=== PATIENT | male | born 1985 | race Caucasian/White ===

== ENCOUNTER → 2023-09-19 10:29 | Outpatient (CLI) | payer OTHER, SELFPAY ==
--- NOTE | ~2023-09-19 | CT_ITS ---
EXAMINATION: CT diagnostic chest wo con DATE: 09/19/2023 10:42 INDICATION: Right upper lobe groundglass nodule reported on prior CT examination outside facility. TECHNIQUE: Computed tomography (CT) of the chest was performed without intravenous contrast. Automate d exposure control and iterative reconstruction technique were employed. Exam dose: 150.18 mGy-cm to beto exam DLP. COMPARISON: None FINDINGS: Right upper lobe, left upper lobe and left lower lobe calcified pulmonary granulomas. Left hilar calcified lymph nodes. No pulmonary infiltrate or consolidation or pulmonary mass lesion is evident. No hilar or mediastinal mass lesion or lymphadenopathy. Normal morphology of the adrenal glands. Small sliding hiatal hernia. Included skeletal structures are unremarkable. IMPRESSION: Old pulmonary granulomatous disease; no suspicious pulmonary nodules Reviewed, dictated and finalized at [facility]. Reviewed, dictated and finalized at [facility]. [employer] IMPRESSION: Old pulmonary granulomatous disease; no suspicious pulmonary nodul es
== END ==
DX: R91.8 Other nonspecific abnormal finding of lung field (principal)
CPT/HCPCS: 71250